=== PATIENT | male | born 2000 ===

== ENCOUNTER 2025-01-12 00:30 | Emergency (ER) | payer BC, SELFPAY ==
[2025-01-12] VITALS (7 sets, daily range): BP systolic 103–164; BP diastolic 52–116; BMI 27.5
--- NOTE | 2025-01-12 00:45 | ED.GENMED ---
History of Present Illness
General
Chief Complaint: Alcohol Problem
Source: patient and ambulance crew
Exam Limitations: altered mental status
Time Seen by Provider: 01/12/25 00:37
Nursing documentation reviewed up to this point in time: agreed with
History of Present Illness
History of Present Illness:
This is a 24-year-old male, [employer] student who admits to drinking a fair amount of alcohol tonight while at a [employer] party. He was attempting to walk home, was found lying on the ground with vomit about him. Arrives via EMS. He
denies injury nor fall, denies pain. He does admit to moderate nausea.
His only daily medication is Prozac.
Admits to moderate alcohol consumption tonight but denies daily. Infrequent use. Denies drug use.
Past History
Past History
ED Past Medical History: Psychiatric
Social History
Tobacco: Non-smoker
Alcohol: Occasional
Drug: None
Personal: Single
Employment: Student
Family History
Family History: Unable to obtain
Phy Exam
Physical Exam
Physical Exam:
GENERAL: 24-year-old male appears his stated age, appears moderately intoxicated, preferentially keeps his eyes closed. He is answering simple questions appropriately and is for the most part cooperative.
EYE: pupils equal and reactive. anicteric. The head is normocephalic, atraumatic.
NECK: Supple, nontender, no meningismus, no significant adenopathy.
ENT: oral mucosa is moist. No rhinorrhea.
CARDIAC: Regular rate and rhythm. no murmur.
LUNGS: Clear breath sounds bilaterally, no acute respiratory distress, no wheezes/rales/rhonchi
ABDOMEN: Soft, nondistended, without focal tenderness, normoactive BS.
NEUROLOGICAL: Awake, oriented x 3, moderately intoxicated, no focal neuro deficits.
SKIN: Warm and dry, normal color, skin intact. No rash.
MUSCULOSKELETAL: No C/C/E. peripheral pulses are full and equal b/l. No palpable tenderness.
PSYCH: Intoxicated. Admits to significant alcohol consumption tonight while at a [employer] party. Denies drug use. Denies self-harm.
Scores
Withdrawal Assessment of Alcohol
Withdrawal Assessment Completed?: Not applicable
Course
Orders/Labs/Results
Orders:
Orders
01/12/25 00:44
0.9% Sodium Chloride 1000 ml [Nss] 1,000 ml IV BOLUS
Ondansetron Injectable [Zofran] 4 mg IV NOW STA
Vital Signs
Initial and Last Documented VS:
Initial Vital Signs
Pulse Ox
96
01/12/25 00:40
Last Documented Vital Signs
Temp Pulse Resp BP Pulse Ox
98.0 F 70 18 103/54 97
01/12/25 00:50 01/12/25 04:00 01/12/25 04:00 01/12/25 04:00 01/12/25 04:00
MDM/Problems Addressed
Differential Diagnosis Includes:
Patient presents via EMS significantly intoxicated, has vomited several times.
Appears moderately intoxicated but hemodynamically stable, handling secretions well.
Will continue back tacker, pulse ox.
Will initiate IV fluids and give an IV dose of Zofran.
No history of trauma nor evidence of trauma on exam. No indication for imaging at this point.
No indication for laboratory studies as well.
Will continue to observe.
*Pulse Oximetry
Patient hypoxic: no
*Assembly Line Driver Interpretation
Rate: normal
Interpretation: normal
Rhythm: sinus
*Critical Care Note
Total Time (30-74mins, 75-104mins- exclusive of procedures): Not Applicable
Update Note
Update Note:
04:30
Patient has been resting comfortably.
Initially quite chatty, lengthy discussion with nurse regarding his tumultuous childhood.
No further vomiting after IV fluids and IV Zofran.
Tolerating oral fluids.
Continues to deny pain.
Will continue to observe in the ED until daylight hours then plan for discharge to home.
Encouraged no further alcoholic beverages at least over the next several days and otherwise stable well-hydrated on a daily basis.
Prompt follow-up with PCP for recheck.
ED Attending Note
-
Portions of this chart may have been created with voice recognition software.� Occasional wrong word or��sound alike� substitutions may have occurred due to the inherent limitations of voice recognition software.
Discharge Plan
Departure
Patient Disposition: Home (Routine Discharge)
Date of Disposition: 01/12/25
Time of Disposition: 05:29
Patient with high blood pressure during this ER visit?: No
Condition: Good
Discharge Problem:
Acute alcohol intoxication
Instructions: Alcohol Poisoning (DC)
Prescriptions:
No Action
fluoxetine [Prozac] 40 mg Capsule
40 mg PO DAILY
Referrals:
NONE,* [Family Provider] - Call in 1-3 days for appt
Interventions
Interventions:
ED- Neurological Assessment Last Done: 01/12/25 01:00
ED-Psychological Assessment Last Done: 01/12/25 01:00
Discharge Date and Time
Print Language: MALTESE
[2025-01-12] MEDS: ZOFRAN 4 MG IV (00:57)
[2025-01-12] MEDS: NSS 1000 IV (01:31)
== END 2025-01-12 06:32 | disposition home or self-care (01) ==
LOC: EMR 00:30
PROVIDERS: EMERGENCY PHYSICIAN Emergency Medicine
DX: F10.129 Alcohol abuse with intoxication, unspecified (principal); R11.10 Vomiting, unspecified; Z79.899 Other long term (current) drug therapy
CPT/HCPCS: 99284; 96374; 96361 ×2